=== PATIENT | female | born 1985 | race Caucasian/White ===

== ENCOUNTER 2018-03-03 17:36 | Emergency (ER) | payer OTHER, SELFPAY ==
[2018-03-03 17:43] VITALS: BP 126/74; PULSE 74; RESP 16; TEMP 36.9; O2SAT 99
--- NOTE | 2018-03-03 18:01 | ED_ITS ---
HPI - Female Genitourinary <LOS Mora - Last Filed: 03/03/18 19:51> General Chief complaint: Urogenital-Female Stated complaint: THINKS KIDNEY INFECTION Time Seen by Provider: 03/03/18 17:53 Source: patient and family Mode of arrival: ambulatory Limitations: no limitations History of Present Illness HPI Narrative: Patient is a 32-year-old female who presents with chief complaint of dysuria, urgency and frequency for 2 days. She complains of nausea without vomiting or diarrhea. She denies any fevers. She does complain of lower back pain. She states she has history of pyelonephritis approximately 8 years ago. She has not had any recent antibiotics. She has not taken anything to feel better. She has been pushing fluids at home. She denies any vaginal discharge or vaginal symptoms. She denies possibility of STI she is . She denies possibility of as her has had vasectomy. She denies any abdominal pain but does complain of bladder spasms. Related Data Previous Rx's Medication Instructions Recorded nitrofurantoin monohyd/m-cryst 100 mg PO BID #14 cap 03/03/18 Allergies Allergy/AdvReac Type Severity Reaction Status Date / Time Penicillins Allergy Unknown unknown Verified 03/03/18 18:03 Review of Systems <LOS Mora - Last Filed: 03/03/18 19:51> Review of Systems GENERAL: Denies chills, fatigue, malaise, fever, sweats. HEENT: Denies sinus pain, ear pain, sore throat, difficulty swallowing, dizziness. RESPIRATORY: Denies dyspnea, cough, wheezing, hemoptysis, sputum. CARDIOVASCULAR: Denies chest pain, palpitations, orthopnea, edema, GASTROINTESTINAL: See HPI : See HPI MUSCULOSKELETAL: denies weakness, joint pain, or bony pain SKIN: Denies rash, skin lesions, or other NEUROLOGIC: Denies weakness, headache, numbness, change in speech, confusion, seizures, incoordination. PSYCHIATRIC: No concerning psychosocial issues. 12 point review of systems is negative except for those stated above Exam <LOS Mora - Last Filed: 03/03/18 19:51> Narrative Exam Narrative: GENERAL: This is a well-nourished, well-developed patient, in no acute distress HEAD: Atraumatic. Normocephalic. No temporal or scalp tenderness. EYES: Pupils equal round and reactive. Extraocular motions intact. No scleral icterus. No injection or drainage. ENT: Nose without bleeding, purulent drainage or septal hematoma. Throat without erythema, tonsillar hypertrophy or exudate. Uvula midline. Airway patent. NECK: Trachea midline. No JVD or lymphadenopathy. Supple, nontender, no meningeal signs. CARDIOVASCULAR: Regular rate and rhythm without murmurs, gallops, or rubs. RESPIRATORY: Clear to auscultation. Breath sounds equal bilaterally. No wheezes , rales, or rhonchi. GASTROINTESTINAL: Abdomen soft, active bowel sounds all 4 quadrants, nondistended. No hepato-splenomegaly, or palpable masses. No guarding. Diffuse suprapubic tenderness to palpation otherwise nontender to palpation. EXTREMITIES: No clubbing, cyanosis, or edema. No joint tenderness, effusion, or edema noted. BACK: Nontender without deformity or crepitance. No CVA tenderness bilaterally NEURO: AOx3. SKIN: No rash or erythema. Initial Vital Signs Initial Vital Signs: Vital Signs Temperature 98.4 F 03/03/18 17:43 Pulse Rate 74 03/03/18 17:43 Respiratory Rate 16 03/03/18 17:43 Blood Pressure 126/74 03/03/18 17:43 Pulse Oximetry 99 03/03/18 17:43 <Oz Rogers DO - Last Filed: 03/03/18 19:58> Initial Vital Signs Initial Vital Signs: Vital Signs Temperature 98.4 F 03/03/18 17:43 Pulse Rate 74 03/03/18 17:43 Respiratory Rate 16 03/03/18 17:43 Blood Pressure 126/74 03/03/18 17:43 Pulse Oximetry 99 03/03/18 17:43 Course <LOS Mora - Last Filed: 03/03/18 19:51> Orders Ordered: ED Orders 03/03/18 18:20 Urinalysis and Microscopic Stat Urine Culture Stat Discontinued Medications Nitrofurantoin Macrocrystals (Macrobid 100 Mg Capsule) 100 mg PO NOW ONE Stop: 03/03/18 18:48 Last Admin: 03/03/18 18:50 Dose: 100 mg Vital Signs - 8 hr 03/03/18 17:43 Temperature 98.4 F Pulse Rate 74 Respiratory Rate 16 Blood Pressure 126/74 Pulse Oximetry 99 <Oz Rogers DO - Last Filed: 03/03/18 19:58> Orders Ordered: ED Orders 03/03/18 18:20 Urinalysis and Microscopic Stat Urine Culture Stat Discontinued Medications Nitrofurantoin Macrocrystals (Macrobid 100 Mg Capsule) 100 mg PO NOW ONE Stop: 03/03/18 18:48 Last Admin: 03/03/18 18:50 Dose: 100 mg Vital Signs - 8 hr 03/03/18 17:43 Temperature 98.4 F Pulse Rate 74 Respiratory Rate 16 Blood Pressure 126/74 Pulse Oximetry 99 MDM - Female Genitourinary <JASMINE MoraBC - Last Filed: 03/03/18 19:51> Lab Data Lab Results 03/03/18 Range/Units 18:20 Urine Color Yellow Urine Appearance Sl cloudy Urine pH 6.0 (4.5-8.0) Ur Specific [place] <=1.005 (1.000-1.035) Urine Protein Negative (Negative) Urine Glucose (UA) Negative (Normal) g/dL Urine Ketones Negative (NEGATIVE) Urine Occult Blood Trace-intact (Negative) Urine Nitrate Negative (Negative) Urine Bilirubin Negative (NEGATIVE) Urine Urobilinogen 0.2 (0.2) E.U./dL Ur Leukocyte Esterase 1+ H (NEGATIVE) Urine RBC 0-1/hpf (0-5/HPF) Urine WBC 10-30/hpf H (0-5/HPF) Ur Squamous Epith Cells 0-1 /hpf Urine Bacteria Occasional (0-1) (None) Ur Culture Indicated? Specimen cultured Micro UA Comment Not Reportable Point of Care Testing Test Results Negative Urine Dip Bedside Urine Glucose Negative Bedside Urine Bilirubin - Negative Bedside Urine Ketone - Negative Urine Specific [place] 1.010 Bedside Urine Occult Blood +/- Bedside Urine pH 6.0 Bedside Urine Protein - Negative Bedside Urine Urobilinogen - Negative Bedside Urine Nitrite - Negative Bedside Urine Leukocytes + 70 Esterase MDM Narrative Medical decision making narrative: Patient is a 32-year-old female who presents with chief complaint dysuria urgency frequency for 2 days. She states she thinks he has UTI and tried to drink lots of fluids to flush it but is still symptomatic. Her urinalysis shows bacteria leukocyte esterase and blood. Thus I will treat her for urinary tract infection with Macrobid. Discussed at length return precautions of flank pain, fever, inability keep down fluids. Patient has no questions or concerns upon discharge. Urine culture is pending. <Oz Rogers DO - Last Filed: 03/03/18 19:58> Lab Data Lab Results 03/03/18 Range/Units 18:20 Urine Color Yellow Urine Appearance Sl cloudy Urine pH 6.0 (4.5-8.0) Ur Specific [place] <=1.005 (1.000-1.035) Urine Protein Negative (Negative) Urine Glucose (UA) Negative (Normal) g/dL Urine Ketones Negative (NEGATIVE) Urine Occult Blood Trace-intact (Negative) Urine Nitrate Negative (Negative) Urine Bilirubin Negative (NEGATIVE) Urine Urobilinogen 0.2 (0.2) E.U./dL Ur Leukocyte Esterase 1+ H (NEGATIVE) Urine RBC 0-1/hpf (0-5/HPF) Urine WBC 10-30/hpf H (0-5/HPF) Ur Squamous Epith Cells 0-1 /hpf Urine Bacteria Occasional (0-1) (None) Ur Culture Indicated? Specimen cultured Micro UA Comment Not Reportable Point of Care Testing Test Results Negative Urine Dip Bedside Urine Glucose Negative Bedside Urine Bilirubin - Negative Bedside Urine Ketone - Negative Urine Specific [place] 1.010 Bedside Urine Occult Blood +/- Bedside Urine pH 6.0 Bedside Urine Protein - Negative Bedside Urine Urobilinogen - Negative Bedside Urine Nitrite - Negative Bedside Urine Leukocytes + 70 Esterase Discharge Plan Departure Patient Disposition: Home Clinical Impression: Urinary tract infection Discharge Date/Time: 03/03/18 19:09 Interventions: ED Discharge Assessment Last Done: 03/03/18 19:07 Instructions: DI for Urinary Tract Infection (UTI) Activity Restrictions/Additional Instructions: I am starting you on an antibiotic for a urinary tract infection. Please push fluids, monitor for fever, monitor for inability keep down fluids or food. Please be evaluated if you are worsening or have no improvement. We are sending a urine culture to make sure that this antibiotic is effective for you. Prescriptions: New nitrofurantoin monohyd/m-cryst 100 mg capsule 100 mg PO BID Qty: 14 RF: 0 Stand Alone Forms: Work/School Restrictions <Oz Rogers DO - Last Filed: 03/03/18 19:58> Cosign ED Attending Cosignature Attestation: I was immediately available in the department for consultation. Documentation has been reviewed. I agree with assessment and plan.
[2018-03-03 18:35] LABS: Appearance Urine UA SL CLOUDY; Bilirubin Urine UA NEGATIVE (NEGATIVE); Color Urine UA YELLOW; Glucose Urine UA NEGATIVE (Normal); Ketones Urine UA NEGATIVE (NEGATIVE); Leukocyte Esterase Urine UA 1+ (NEGATIVE); Nitrite Urine UA NEGATIVE (Negative); Occult Blood Urine UA TRACE-INTACT (Negative); Protein Urine UA NEGATIVE (Negative); Specific Gravity Urine UA <=1.005 (1.000-1.035); Urobilinogen Urine UA 0.2 E.U./dL (0.2)
[2018-03-03 18:41] LABS: Bacteria Urine Occasional (0-1); RBC Urine 0-1/HPF (0-5/HPF); Squamous Epithelial Cell Urine 0-1 /HPF; WBC Urine 10-30/HPF (0-5/HPF)
[2018-03-03 18:42] LABS: Culture Indicated Urine Specimen Cultured
[2018-03-03] MEDS: NITROFURANTOIN ER 100 MG CAPSULE PO (18:50)
== END 2018-03-03 19:09 | disposition home or self-care (01) ==
PROVIDERS: Emergency Provider Nurse Practitioner Family
DX: N39.0 Urinary tract infection, site not specified (principal)
CPT/HCPCS: 81001; 81003; 81025; 87086; 99282; 99283

== ENCOUNTER 2018-04-09 21:21 | Emergency (ER) | payer OTHER, SELFPAY ==
[2018-04-09 21:25] VITALS: BP 121/67; PULSE 80; RESP 18; TEMP 36.9; O2SAT 98; BMI 30.9
--- NOTE | 2018-04-09 21:45 | ED_ITS ---
HPI - Headache General Chief Complaint: Headache Stated Complaint: LEFT SIDE OF FACE HURTS UNDER THE EYE Time Seen by Provider: 04/09/18 21:32 Source: patient Mode of arrival: ambulatory Limitations: no limitations History of Present Illness HPI Narrative: 32-year-old female here for evaluation of several days if not a week tenderness under her left eye. Reports no skin changes. No fevers. He is having sinus congestion. No vision changes. No sore throat. Has not tried anything for the symptoms prior to arrival Related Data Previous Rx's Medication Instructions Recorded nitrofurantoin monohyd/m-cryst 100 mg PO BID #14 cap 03/03/18 azithromycin See Label Instructions .ROUTE 04/09/18 .COMPLEX #6 tab Allergies Allergy/AdvReac Type Severity Reaction Status Date / Time Penicillins Allergy Unknown unknown Verified 03/03/18 18:03 Review of Systems Constitutional Denies fever(s) Eyes Denies change in vision and Denies diplopia ENT Ears, Nose, Mouth, and Throat: Denies ear discharge, Reports facial pain, Denies neck pain, Denies tinnitus, Reports sinus pain, Reports sinus pressure and Reports sore throat Cardiovascular Denies chest pain and Denies dyspnea Respiratory Denies dyspnea Gastrointestinal Gastrointestinal: Denies abdominal pain Musculoskeletal Denies neck pain Integumentary/Breasts Denies rash [facility] Medical History Healthy adult (Acute) Surgical History No pertinent past surgical history (Acute) Social History Smoking Status: Never smoker Exam Initial Vital Signs Initial Vital Signs: Vital Signs Temperature 98.5 F 04/09/18 21:25 Pulse Rate 80 04/09/18 21:25 Respiratory Rate 18 04/09/18 21:25 Blood Pressure 121/67 04/09/18 21:25 Pulse Oximetry 98 04/09/18 21:25 Const General: cooperative, healthy appearing, comfortable, well developed, well groomed and No acute distress Orientation: alert, awake and oriented x3 HENMT Head: normal to inspection, normocephalic and atraumatic Ears: TM's normal bilaterally Nose: external nose normal Face and sinus: sinuses tender, face symmetric, no crepitus and tenderness on the left maxilla Mouth: oral mucosae normal Teeth and gingiva: dentition normal Throat: posterior oropharynx normal Eyes Pupils: PERRL EOM: EOM intact bilaterally Neck Lymphatic: No lymphadenopathy Resp Effort & Inspection: normal respiratory effort Cardio Rate: regular rate Rhythm: regular rhythm Skin Lesions: no lesions Rashes: no rashes Neuro General: alert, awake and oriented x3 Extrem General: normal to inspection and capillary refill normal Course Vital Signs - 8 hr 04/09/18 22:00 Temperature 98.5 F Pulse Rate 80 Respiratory Rate 18 Blood Pressure 121/67 Pulse Oximetry 98 MDM - Headache MDM Narrative Medical decision making narrative: Patient with tenderness to palpation over the left maxillary sinus. The rest of her exam is unremarkable. I do suspect sinusitis. She is not currently taking any decongestants. We did discuss the importance of doing this for the next couple days. She was given instructions with regard to this. Will also send home with a prescription for antibiotics and she was told to hold this prescription for the next couple days and try the decongestants. Informed her that if her symptoms do not improve or worsen over this period of time that she can fill the prescription start taking as directed. She was given return precautions. She expressed understanding and agreement with plan. Discharge Plan Departure Patient Disposition: Home Clinical Impression: Sinusitis Discharge Date/Time: 04/09/18 22:08 Interventions: ED Discharge Assessment Last Done: 04/09/18 22:05 Instructions: Sinusitis (Alternative Therapy), DI for Sinusitis Activity Restrictions/Additional Instructions: Recommend that you start taking either Claritin or Cortney or Zyrtec like we discussed. Also recommend that you start on Flonase or Nasonex also like we discussed. You can also use Afrin. Recommend trying these medications for the next couple days. If you your symptoms worsen or do not improve then fill the prescription for the antibiotics and take them as directed. Return to the emergency department for any new or worsening symptoms Prescriptions: New azithromycin 250 mg tablet See Label Instructions .ROUTE .COMPLEX Qty: 6 RF: 0 No Action nitrofurantoin monohyd/m-cryst 100 mg capsule 100 mg PO BID Qty: 14 RF: 0
[2018-04-09 22:00] VITALS: BP 121/67; PULSE 80; RESP 18; TEMP 36.9; O2SAT 98; BMI 30.9
== END 2018-04-09 22:08 | disposition home or self-care (01) ==
PROVIDERS: Emergency Provider Emergency Medicine
DX: J01.90 Acute sinusitis, unspecified (principal)
CPT/HCPCS: 99282

== ENCOUNTER 2018-06-06 07:00 | Emergency (ER) | payer OTHER, SELFPAY ==
[2018-06-06 07:11] VITALS: BP 121/83; PULSE 102; RESP 16; TEMP 36.8; O2SAT 99; BMI 30.5
--- NOTE | 2018-06-06 07:30 | ED.NECK ---
HPI - Neck Pain/Injury General Chief Complaint: Neck Pain/Injury Stated Complaint: BACK OF NECK PAIN RADIATING DOWN Time Seen by Provider: 06/06/18 07:16 Source: patient Mode of arrival: ambulatory Limitations: no limitations History of Present Illness HPI Narrative: patient is a 32 year old female here for evaluation of headache. She states it woke her from sleep approximately 0200 hr in the morning. She states has been constant since then. It is a throbbing sensation. She describes it is both sides of the back of her head. Not made worse with palpation but does make worse with flexing and extension of the neck. Was seen at an outside hospital yesterday and was diagnosed with a sinus infection. Was given a dose of Decadron and sent home with a prescription for Sudafed and Elie Williamson. She states she has never had headaches before. Pain does seem to be radiating down to her neck but she states that her neck in her arms do not hurt. No recent travel. Related Data Previous Rx's Medication Instructions Recorded nitrofurantoin monohyd/m-cryst 100 mg PO BID #14 cap 03/03/18 azithromycin See Rx Instructions .ROUTE 04/09/18 .COMPLEX #6 tab cyclobenzaprine 10 mg PO TID PRN #12 tab 06/06/18 Allergies Allergy/AdvReac Type Severity Reaction Status Date / Time Penicillins Allergy Unknown unknown Verified 06/06/18 07:11 Review of Systems Constitutional Reports headache(s) ENT Ears, Nose, Mouth, and Throat: Denies dental pain, Denies facial pain, Reports headache(s), Reports nasal discharge, Reports neck pain, Reports sinus pressure, Denies sore throat and Denies throat swelling Cardiovascular Denies chest pain and Denies dyspnea Respiratory Denies dyspnea Gastrointestinal Gastrointestinal: Denies abdominal pain, Denies nausea and Denies vomiting Musculoskeletal Reports myalgias, Reports neck pain and Denies numbness Integumentary/Breasts Denies rash Neurologic Reports headache(s) and Denies numbness Allergic/Immunologic Denies throat swelling PFSH Medical History Healthy adult (Acute) Surgical History No pertinent past surgical history (Acute) Social History Smoking Status: Never smoker Social History Smoking Status: Never smoker Exam Initial Vital Signs Initial Vital Signs: Vital Signs Temperature 98.2 F 06/06/18 07:11 Pulse Rate 102 H 06/06/18 07:11 Respiratory Rate 16 06/06/18 07:11 Blood Pressure 121/83 06/06/18 07:11 Pulse Oximetry 99 06/06/18 07:11 Const General: cooperative, well developed, well groomed and No acute distress Orientation: alert, awake and oriented x3 HENMT Head: normal to inspection and normocephalic Ears: TM's normal bilaterally Nose: external nose normal Face and sinus: normal facial exam Resp Effort & Inspection: normal respiratory effort Auscultation: clear to auscultation bilaterally Cardio Rate: tachycardic Rhythm: regular rhythm Pulses: radial pulses present Back/Spine/Pelvis Other: Patient reports reproduction of the symptoms with flexion extension of the neck however her unable to reproduce symptoms with palpation. Skin Lesions: no lesions Rashes: no rashes Neuro General: alert, awake and oriented x3 Extrem General: normal to inspection and capillary refill normal Psych Appearance: grossly normal and well kempt Course Orders Ordered: ED Orders 06/06/18 07:33 CT head/brain wo con Stat Discontinued Medications Hydrocodone Bitart/Acetaminophen ([place] 5/325) 1 tab PO NOW ONE Stop: 06/06/18 07:30 Last Admin: 06/06/18 07:36 Dose: 1 tab Ketorolac Tromethamine (Toradol) 30 mg IM NOW ONE Stop: 06/06/18 07:30 Last Admin: 06/06/18 07:36 Dose: 30 mg Vital Signs - 8 hr 06/06/18 07:11 Temperature 98.2 F Pulse Rate 102 H Respiratory Rate 16 Blood Pressure 121/83 Pulse Oximetry 99 MDM - Neck Pain/Injury Imaging Data CT scan - head: Radiologist's impression: PROCEDURE: CT HEAD/BRAIN WO CON INDICATIONS: new onset headache TECHNIQUE: Noncontrast 4.5 mm thick angled axial sections acquired from the foramen magnum to the vertex, with coronal and sagittal reformats. For radiation dose reduction, the following was used: automated exposure control, adjustment of mA and/or kV according to patient size. COMPARISON: None. FINDINGS: Image quality: Excellent. CSF spaces: Basal cisterns are patent. No extra-axial fluid collections. Ventricles are normal in size and shape. Brain: No midline shift. No intracranial masses or hemorrhage. Leblanc-white matter interface is normal. Skull and face: Calvarium and visualized facial bones are intact, without suspicious lesions. Sinuses: Visualized sinuses and mastoids are clear. IMPRESSION: No acute intracranial disease process. Dictated by: Karissa Ramirez MD, PhD on 06/06/2018 at 7:52 Approved by: Karissa Ramirez MD, PhD on 06/06/2018 at 7:54 [facility] Narrative Medical decision making narrative: Patient reports a great improvement of her symptoms after the medications here in the ER. Her head CT was unremarkable. She is neurovascularly intact. I do suspect this is a musculoskeletal issue. Potentially related to her sinus issues that she was seen yesterday for. Will send home with a muscle relaxer. Will hold on further workup for now. Patient was given return precautions. She expressed understanding and agreement with plan. Discharge Plan Departure Patient Disposition: Home Clinical Impression: Strain of neck muscle Qualifiers: Encounter type: initial encounter Qualified Code(s): S16.1XXA - Strain of muscle, fascia and tendon at neck level, initial encounter Instructions: DI for Neck Pain Activity Restrictions/Additional Instructions: Take all of your medications as directed. contact your primary care doctor for follow-up. Return to the emergency department for any new or worsening symptoms Prescriptions: New cyclobenzaprine 10 mg tablet 10 mg PO TID PRN (Reason: muscle spasm) Qty: 12 RF: 0 No Action nitrofurantoin monohyd/m-cryst 100 mg capsule 100 mg PO BID Qty: 14 RF: 0 azithromycin 250 mg tablet See Rx Instructions .ROUTE .COMPLEX Qty: 6 RF: 0
--- NOTE | 2018-06-06 07:33 | DI.CT.S_ITS ---
PROCEDURE: CT HEAD/BRAIN WO CON INDICATIONS: new onset headache TECHNIQUE: Noncontrast 4.5 mm thick angled axial sections acquired from the foramen magnum to the vertex, with coronal and sagittal reformats. For radiation dose reduction, the following was used: automated exposure control, adjustment of mA and/or kV according to patient size. COMPARISON: None. FINDINGS: Image quality: Excellent. CSF spaces: Basal cisterns are patent. No extra-axial fluid collections. Ventricles are normal in size and shape. Brain: No midline shift. No intracranial masses or hemorrhage. Leblanc-white matter interface is normal. Skull and face: Calvarium and visualized facial bones are intact, without suspicious lesions. Sinuses: Visualized sinuses and mastoids are clear. IMPRESSION: No acute intracranial disease process. Dictated by: Karissa Ramirez MD, PhD on 06/06/2018 at 7:52 Approved by: Karissa Ramirez MD, PhD on 06/06/2018 at 7:54
[2018-06-06] MEDS: HYDROCODONE/ACET 5/325 TABLET 1 TAB PO (07:36)
[2018-06-06] MEDS: KETOROLAC 60 MG/2 ML VIAL 30 MG IM (07:36)
[2018-06-06 08:50] VITALS: PULSE 59; RESP 16; O2SAT 99
== END 2018-06-06 08:51 | disposition home or self-care (01) ==
PROVIDERS: Emergency Provider Emergency Medicine
DX: S16.1XXA Strain of muscle, fascia and tendon at neck level, initial encounter (principal)
CPT/HCPCS: 70450; 96374; 96375; 96376; 99282; 99284; J1885